=== PATIENT | male | born 1955 | race Caucasian/White ===

== ENCOUNTER → 2023-07-25 | Outpatient (REF) | payer MEDICARE ==
[~2023-07-25] MED LIST: ANDROGEL75 G1; ASPIRIN81 MG PO; DOXYCYCLINE HY100 MG PO; DULCOLAX PO; FLECTOR1 EACH TD; FLOMAX0.4 MG PO; GADOBENATE DIMEGLUMINE 1 ML IV ONE; MELOXICAM15 MG PO; MELOXICAM7.5 MG PO; METRONIDAZOLE TOP; PERCOCET 5-3251 EACH PO; PLAQUENIL200 MG PO; SUPER B WITH V1 EACH PO; ULTRAM 50MG50 MG PO; VITAMIN C1000 MG PO; VITAMIN D; VITAMIN D325 MCG; ZINC50 M2; [UNRECOGNIZED DRUG - OTHER] PO
== END ==
LOC: MRI 13:56
PROVIDERS: ATTEND Neurological Surgery
DX: M51.16 Intervertebral disc disorders with radiculopathy, lumbar region (principal)
CPT/HCPCS: 72158; A9577